=== PATIENT | female | born 1945 | race African-American/Black ===

== ENCOUNTER 2016-12-21 09:03 | Emergency (ER) | payer OTHER ==
[2016-12-21] MEDS ORDERED: DUONEB (A & A) INH ONE (09:47)
[2016-12-21] MEDS ORDERED: SOLU-MEDROL IV ONE (09:48)
[2016-12-21 10:00] LABS: MANUAL DIFF NEEDED? NO
[2016-12-21 10:09] LABS: BASO% 0.1 % (0.0-0.8); EOS# 0.12 X1000 (0.0-0.7); EOS% 1.4 % (0.0-10.0); HEMATOCRIT 29.1 % (37.0-47.0); HEMOGLOBIN 8.8 g/dL (12.0-16.0); IMM GRAN# 0.02 X1000 (0.0-0.04); IMM GRAN% 0.2 % (0.0-0.5); LYMPH# 1.69 X1000 (1.2-3.4); LYMPH% 19.9 % (20.5-51.1); MCH 30.2 PG (27-31); MCHC 30.2 g/dL (33-37); MONO# 0.59 X1000 (0.11-0.59); MPV 9.9 FL (7.4-10.4); NEUT% 71.4 % (42.2-75.2); PLT 132 X1000 (130-400); RBC 2.91 XMIL (4.2-5.4)
--- NOTE | 2016-12-21 10:09 | ED EKG INTERP ---
EKG Interpretation - EKG Time of EKG reading by physician:: 09:16 EKG Read and Signed by:: Meagan Najera EKG Interpretation (*Must complete 3 of following elements*): Abnormal Rate: 97 (nonspecific ST and T wave abnormality ) Rhythm: sinus rhythm with premature atrial complexes w/ aberrant conduction - EKG # 2 Time of EKG reading by physician:: 12:17 EKG Read and Signed by:: Meagan Najera EKG Interpretation (*Must complete 3 of following elements*): Abnormal Rate: 84 (cannot rule out anterior infarct, age undeterminded ) Rhythm: NSR Attestation - Scribe Verification/Attestation Scribe:: Keturah Ovalle Acting as Scribe for:: Meagan Najera Scribe documention review:: This chart was documented by a scribe and accurately reflects the service the provider performed and the decisions made by the provider.
--- NOTE | 2016-12-21 10:14 | PROVIDER DOCUMENTATION ---
HPI-Respiratory General - General Chief Complaint: Shortness of Breath Stated Complaint: copd exacerbation Time Seen by Provider: 12/21/16 09:24 Source: patient, EMS Allergies/Adverse Reactions: Patient Allergies Allergy/AdvReac Type Severity Reaction Status Date / Time Penicillins Allergy Intermediate HIVES Verified 12/21/16 09:53 epoetin adela [From Procrit] Allergy Unknown Verified 12/21/16 09:53 Iodinated Contrast Media - AdvReac Intermediate NAUSEA/VOMI Verified 12/21/16 09 :53 Oral and TING ibuprofen [From Motrin] AdvReac Unknown Verified 12/21/16 09:53 Home Medications: Home Medication List Medication Instructions Recorded Confirmed Last Taken Type Amitriptyline [Elavil] 10 mg PO HS 12/21/16 12/21/16 Unknown History Amlodipine Besylate [Norvasc] 10 mg PO DAILY 12/21/16 12/21/16 12/20/16 08:30 History Aspirin [Aspirin EC] 81 mg PO DAILY 12/21/16 12/21/16 12/20/16 08:30 History Clonazepam [Klonopin] 0.5 mg PO DAILY 12/21/16 12/21/16 12/20/16 08:30 History Clonidine HCl 0.1 mg PO BID 12/21/16 12/21/16 12/20/16 19:00 History Dicyclomine [Bentyl] 20 mg PO Q6H PRN PRN 12/21/16 12/21/16 Unknown History Esomeprazole [Nexium] 40 mg PO DAILY 12/21/16 12/21/16 12/20/16 08:30 History Furosemide [Lasix] 40 mg PO DAILY 12/21/16 12/21/16 12/20/16 08:30 History Glimepiride [Amaryl] 1 mg PO BID 12/21/16 12/21/16 12/20/16 19:00 History Hydralazine [Apresoline] 100 mg PO TID 12/21/16 12/21/16 12/20/16 19:00 History Hydrocodone/Acetaminophen [[place] 1 each PO DIRECTED PRN 12/21/16 12/21/16 Unknown History 10-325 Tablet] Iron Fum,Ps/FA/Vit B with C #9 1 each PO DAILY 12/21/16 12/21/16 12/20/16 08:30 History [Integra Plus Capsule] Isosorbide Dinitrate [Isordil] 20 mg PO TID 12/21/16 12/21/16 12/20/16 19:00 History Montelukast [Singulair] 10 mg PO QHS 12/21/16 12/21/16 12/20/16 19:00 History Nadolol [Corgard] 40 mg PO BID 12/21/16 12/21/16 12/20/16 19:00 History Ondansetron HCl [Zofran] 4 mg PO BID 12/21/16 12/21/16 12/20/16 19:00 History Prednisone 5 mg PO DAILY 12/21/16 12/21/16 12/20/16 08:30 History Roflumilast [Daliresp] 500 mcg PO DAILY 12/21/16 12/21/16 12/20/16 08:30 History Sucralfate [Carafate] 1 gm PO 4XDAY 12/21/16 12/21/16 12/20/16 19:00 History - History of Present Illness-Resp Nature of Presenting Problem: Pt is a 71 yof who came to the ED with a cc of SOB. Pt reports she came in contact with a sick nurse at home and after that she became SOB. Pt reports last night it got worse so this morning she decided to call EMS. Pt was on 80% SAT on at home oxygen, so EMS gave her an albuterol treatment. When pt got to the ED her room sat was 92%. Pt reports she was nauseous but had no chest pain. Quality of Pain: reports: none Severity in ED: reports: mild Onset/Duration: reports: last night Timing: reports: still present Exposure: reports: illness exposure Associated Symptoms: reports: shortness of breath, short of breath, wheezing Similar Symptoms Previously?: No Recently seen or treated by another doctor?: No Review of Systems - Adult - REVIEW OF SYSTEMS - ADULT Constitutional: denies: chills, fever Eyes: reports: no symptoms reported Ears, Nose, Mouth & Throat: reports: no symptoms reported Cardiovascular: denies: chest pain, heart murmur, syncope Respiratory: reports: shortness of breath, wheezing. denies: cough, hemoptysis Gastrointestinal: reports: nausea. denies: diarrhea, vomiting Genitourinary: reports: no symptoms reported Musculoskeletal: reports: no symptoms reported Integumentary: reports: no symptoms reported Neurological: reports: no symptoms reported Psychiatric: reports: no symptoms reported Endocrine: reports: no symptoms reported Hematologic/Lymphatic: reports: no symptoms reported Allergic/Immunologic: reports: no symptoms reported All Other Systems: Reviewed and Negative Past History - Adult - PAST MEDICAL HISTORY-ADULT Review of Records: reports: Old Records Reviewed, Nursing Assessment Review Major Childhood Illnesses: reports: denies history Cardiovascular: reports: blood clots (PE), CAD, CHF, HTN, hyperlipidemia Respiratory: reports: asthma, COPD Gastrointestinal: reports: diverticulosis, GERD, IBS Obstetrical/Gynecological: reports: denies history Genitourinary: reports: kidney disease (CKD) Musculoskeletal: reports: arthritis, chronic pain Neurological: reports: denies history Psychiatric: reports: depression Endocrine/Immune: reports: Diabetes, lupus Other Conditions: reports: denies history - PRIOR SURGERIES/PROCEDURES Surgical/Procedure History: reports: EGD, colonoscopy, CABG, cholecystectomy, back/neck (back surgery ) - PRIOR HOSPITALIZATIONS Prior Hospitalizations: reports: none - IMMUNIZATION STATUS Childhood Immunizations: See Nurse Assessment Flu Vaccine: See Nurse Assessment - FAMILY HISTORY Family History: reviewed, not pertinent Physical Exam-General - PHYSICAL EXAM-ADULT Initial Vital Signs Reviewed: Yes - CONSTITUTIONAL General Appearance: alert, no apparent distress - EYES Eyes: pink conjunctivae, fundi clear, no AV nicking - HEAD, EARS, NOSE, MOUTH & THROAT HENMT: normocephalic/atraumatic, moist mucous membranes, other (no teeth) - NECK Neck: non-tender - RESPIRATORY Respiratory: decreased breath sounds (bilateral, more on the right lobe than the left), wheezing - CARDIOVASCULAR Cardiovascular: normal peripheral pulses, regular rate, rhythm - GASTROINTESTINAL (ABDOMEN) Abdominal Exam: normal bowel sounds, non tender, soft - MUSCULOSKELETAL Back Exam: normal inspection Extremity: non-tender, pedal edema (less than 1) - SKIN Integumentary: normal color, warm/dry - NEUROLOGIC Neurologic: grossly normal - PSYCHIATRIC Psych/Mental Status: normal mood/affect, normal thought content, normal thought process, oriented x 3 Progress - PLAN OF CARE/RESULTS Progress/Plan/Lab Results: Vital Signs - 24 hr 12/21/16 12/21/16 09:03 09:06 Temperature 98.2 F 98.2 F Pulse Rate 130 H 101 H Respiratory 18 28 H Rate Blood Pressure 221/122 211/122 O2 Sat by Pulse 96 96 Oximetry Orders Category Date Time Status Cardiac Monitoring DIRECTED Care 12/21/16 09:47 Active Cardiac Monitoring DIRECTED Care 12/21/16 09:48 Inactive Saline Loc NOW Care 12/21/16 09:47 Active Saline Loc NOW Care 12/21/16 09:48 Inactive CHEST-2 VIEWS [RAD] Stat Exams 12/21/16 09:48 Ordered ABG [RESP] Routine Lab 12/21/16 09:47 Ordered BLOOD CULTURE [BLDCUL] Stat Lab 12/21/16 09:47 Received CBC WITH ELECTRONIC DIFF [HEME] Stat Lab 12/21/16 09:43 Completed CK PROFILE [SP CHEM] Stat Lab 12/21/16 09:43 Received COMPREHENSIVE METABOLIC PANEL [CHEM] Stat Lab 12/21/16 09:43 Received D-DIMER [CHEM] Stat Lab 12/21/16 09:43 Received LACTATE, PLASMA [CHEM] Stat Lab 12/21/16 09:43 Received MAGNESIUM [CHEM] Stat Lab 12/21/16 09:43 Received PRO B-NATRIURETIC PEPTIDE Stat Lab 12/21/16 09:43 Received PROTIME WITH INR [COAG] Stat Lab 12/21/16 09:43 Received PTT [COAG] Stat Lab 12/21/16 09:43 Received TROPONIN T Stat Lab 12/21/16 09:43 Received Albuterol 2.5MG/Ipratrop 0.5MG [Duoneb (A & A)] Med 12/21/16 09:47 Discontinued 9 ml INH NOW ONE Methylprednisolone Sod Succ [Solu-Medrol] Med 12/21/16 09:48 Discontinued 125 mg IV NOW ONE Aerosol Treatments Routine Oth 12/21/16 09:48 Active EKG [EKG] Stat Ther 12/21/16 09:12 Ordered Laboratory Tests 12/21/16 09:43 WBC 8.48 RBC 2.91 L Hgb 8.8 L Hct 29.1 L MCV 100.0 H MCH 30.2 MCHC 30.2 L RDW Std Deviation 14.9 H Plt Count 132 MPV 9.9 Immature Gran % (Auto) 0.2 Neut % (Auto) 71.4 Lymph % (Auto) 19.9 L [place] % (Auto) 7.0 Eos % (Auto) 1.4 Baso % (Auto) 0.1 Immature Gran # (Auto) 0.02 Neut # (Auto) 6.05 Lymph # (Auto) 1.69 [place] # (Auto) 0.59 Eos # (Auto) 0.12 Baso # (Auto) 0.01 - REASSESSMENT Reassessment #1 Time Reassessed: 13:11 (Pt reports she feels better and is hungry. Pt was told she needed her blood work rechecked. Pt agrees and is okay with the medical decision.) Status: improving Departure - Departure Time of Disposition Order: 15:16 DIAGNOSIS: COPD (chronic obstructive pulmonary disease) Qualifiers: COPD type: unspecified COPD Qualified Code(s): J44.9 - Chronic obstructive pulmonary disease, unspecified Disposition: HOME 01 Certified Medical Emergency: Emergent Condition: Stable Attestation - Scribe Verification/Attestation Scribe:: Keturah Ovalle Acting as Scribe for:: Meagan Najera Scribe documention review:: This chart was documented by a scribe and accurately reflects the service the provider performed and the decisions made by the provider.
[2016-12-21 10:18] LABS: INR 1.06; PROTIME 10.8 Seconds (9.2-11.7); PTT 21.6 Seconds (22.0-36.0)
[2016-12-21 10:19] LABS: ALLEN TEST YES; BE 2.5 mmoll (-3.0-3.0); BLOOD TYPE ARTERIAL; DRAW SITE R RADIAL; METHB 1.6 % (0.0-1.5); O2(CT) 11.8 mL/dL (15.0-23.0); PCO2(98.6) 46 mmHg (35-45); PO2(98.6) 88 mmHg (60-100); SAMPLE BLOOD; SAO2 98.9 % (95.0-100.0); THB 8.7 g/dL (11.5-17.4); pH(98.6) 7.39 (7.35-7.45)
[2016-12-21 10:20] LABS: MODALITY CANNULA
[2016-12-21 10:26] LABS: ALBUMIN 3.2 g/dL (3.5-5.0); CALCIUM 9.2 mg/dL (8.8-10.2); MAGNESIUM 2.1 mg/dL (1.5-2.7); POTASSIUM 4.5 mmol/L (3.5-5.1); TOTAL BILIRUBIN 0.19 mg/dL (0.20-1.00)
[2016-12-21] MEDS ORDERED: LASIX IV ONE (11:05)
[2016-12-21] MEDS ORDERED: ZOFRAN IV ONE (13:00)
[2016-12-21] MEDS ORDERED: CATAPRES PO ONE (13:08)
[2016-12-21 13:51] LABS: ALLEN TEST YES; BE 4.2 mmoll (-3.0-3.0); BLOOD TYPE ARTERIAL; DRAW SITE R RADIAL; METHB 1.4 % (0.0-1.5); O2(CT) 11.9 mL/dL (15.0-23.0); PCO2(98.6) 45 mmHg (35-45); PO2(98.6) 65 mmHg (60-100); SAMPLE BLOOD; SAO2 96.7 % (95.0-100.0); pH(98.6) 7.42 (7.35-7.45)
[2016-12-21 13:52] LABS: MODALITY CANNULA
--- NOTE | 2016-12-21 15:27 | Diag Imaging Result Document ---
PROCEDURE NAME: CHEST-2 VIEWS - 12/21/2016 CHEST, 2 VIEWS: COMPARISON: 11/30/2016. FINDINGS: There is cardiomegaly which appears to have decreased slightly. There are sternal wires from previous surgery again seen. There is mild lower lung interstitial edema similar to the previous exam. There is mild thickening of fissures which appears to have decreased. There is no large pleural effusion or pneumothorax identified. IMPRESSION: Cardiomegaly with possible mild congestive heart failure.
[2016-12-21 15:36] VITALS: BP 167/99
--- NOTE | 2016-12-23 10:50 | EKG Report ---
Test Performed on : 12/21/2016 09:16:13 AM Test Reason : sob Blood Pressure : / mmHG Vent. Rate : 097 BPM Atrial Rate : 097 BPM P-R Int : 162 ms QRS Dur : 068 ms QT Int : 356 ms P-R-T Axes : 055 018 140 degrees QTc Int : 452 ms Sinus rhythm. with premature atrial complexes. with aberrant conduction. Nonspecific ST and T wave abnormality Abnormal ECG When compared with ECG of 30-NOV-2016 06:39, aberrant conduction. is now present Unconfirmed Result
--- NOTE | 2016-12-23 10:51 | EKG Report ---
Test Performed on : 12/21/2016 12:17:09 PM Test Reason : tachycardia Blood Pressure : / mmHG Vent. Rate : 084 BPM Atrial Rate : 084 BPM P-R Int : 172 ms QRS Dur : 066 ms QT Int : 386 ms P-R-T Axes : 061 014 136 degrees QTc Int : 456 ms Normal sinus rhythm. Cannot rule out Anterior infarct , age undetermined Abnormal ECG When compared with ECG of 21-DEC-2016 09:16, (Unconfirmed) aberrant conduction. is no longer present Unconfirmed Result
== END 2016-12-21 16:17 | disposition home or self-care (01) ==
LOC: ED 09:03
DX: J44.9 Chronic obstructive pulmonary disease, unspecified (principal); R94.31 Abnormal electrocardiogram [ECG] [EKG]; R06.02 Shortness of breath; R11.0 Nausea; R06.2 Wheezing; R60.0 Localized edema; I25.10 Atherosclerotic heart disease of native coronary artery without angina pectoris; I50.9 Heart failure, unspecified; Z79.899 Other long term (current) drug therapy; E78.5 Hyperlipidemia, unspecified; K21.9 Gastro-esophageal reflux disease without esophagitis; K58.9 Irritable bowel syndrome, unspecified; I12.9 Hypertensive chronic kidney disease with stage 1 through stage 4 chronic kidney disease, or unspecified chronic kidney disease; N18.9 Chronic kidney disease, unspecified; M19.90 Unspecified osteoarthritis, unspecified site; G89.29 Other chronic pain; E11.9 Type 2 diabetes mellitus without complications; M32.9 Systemic lupus erythematosus, unspecified; F32.9 Major depressive disorder, single episode, unspecified; Z79.82 Long term (current) use of aspirin
CPT/HCPCS: 71020; 80053; 82550; 82805; 83605; 83735; 83880; 84484; 85025; 85379; 85610; 85730; 87040; 93005; 94640; 94761; 96374; 96375; J1940; J2405; J2930

== ENCOUNTER 2017-02-03 15:12 | Inpatient (IN) ==
[2017-02-03] MEDS ORDERED: LASIX IV ONE (16:29)
--- NOTE | 2017-02-03 17:01 | Diag Imaging Result Document ---
PROCEDURE NAME: CHEST-PORTABLE - 02/03/2017 PORTABLE CHEST X-RAY: COMPARISON: 12/21/2016. FINDINGS: Stable sternotomy wires and cardiomegaly. Stable mild interstitial infiltrates diffusely and bilaterally compatible with pulmonary edema. No pneumothorax or large effusion. IMPRESSIONS: Cardiomegaly and interstitial pulmonary edema. Very similar to prior.
--- NOTE | 2017-02-03 17:53 | PROVIDER DOCUMENTATION ---
This chart was entered by Donna Avina Scribe, acting as scribe for Ildefonso Walters MD. HPI-Respiratory General - General Source: patient - History of Present Illness-Resp Severity in ED: reports: mild Onset/Duration: reports: 2 days ago Timing: reports: still present Current Respiratory Medication Therapy: Initiated see nurses note Associated Symptoms: reports: shortness of breath Similar Symptoms Previously?: No Recently seen or treated by another doctor?: No <Ildefonso Walters - Last Filed: 02/03/17 17:53> - General Source: patient <Giaocmo Huggins - Last Filed: 02/05/17 00:42> - General Stated Complaint: SOB Time Seen by Provider: 02/03/17 15:29 Allergies/Adverse Reactions: Patient Allergies Allergy/AdvReac Type Severity Reaction Status Date / Time Penicillins Allergy Intermediate HIVES Verified 02/03/17 16:20 epoetin adela [From Procrit] Allergy Unknown Verified 02/03/17 16:20 Iodinated Contrast Media - AdvReac Intermediate NAUSEA/VOMI Verified 02/03/17 16 :20 Oral and TING ibuprofen [From Motrin] AdvReac Unknown Verified 02/03/17 16:20 Home Medications: Home Medication List Medication Instructions Recorded Confirmed Last Taken Type Amitriptyline [Elavil] 10 mg PO HS 12/21/16 02/03/17 02/02/17 21:00 History Amlodipine Besylate [Norvasc] 10 mg PO DAILY 12/21/16 02/03/17 02/03/17 07:00 History Aspirin [Aspirin EC] 81 mg PO DAILY 12/21/16 02/03/17 02/03/17 07:00 History Clonazepam [Klonopin] 0.5 mg PO DAILY 12/21/16 02/03/17 02/02/17 21:00 History Clonidine HCl 0.1 mg PO BID 12/21/16 02/03/17 02/03/17 07:00 History Dicyclomine [Bentyl] 20 mg PO Q6H PRN PRN 12/21/16 02/03/17 02/02/17 21:00 History Esomeprazole [Nexium] 40 mg PO DAILY 12/21/16 02/03/17 02/03/17 07:00 History Furosemide [Lasix] 40 mg PO DAILY 12/21/16 02/03/17 02/03/17 07:00 History Glimepiride [Amaryl] 1 mg PO BID 12/21/16 02/03/17 01/05/17 History Hydrocodone/Acetaminophen [[place] 1 each PO DIRECTED PRN 12/21/16 02/03/17 13:00 History 10-325 Tablet] Iron Fum,Ps/FA/Vit B with C #9 1 each PO BID 12/21/16 01/06/17 02/03/17 07:00 History [Integra Plus Capsule] Isosorbide Dinitrate [Isordil] 20 mg PO TID 12/21/16 02/03/17 02/03/17 13:00 History Montelukast [Singulair] 10 mg PO QHS 12/21/16 02/03/17 02/02/17 21:00 History Nadolol [Corgard] 40 mg PO DAILY 12/21/16 01/06/17 02/03/17 07:00 History Ondansetron HCl [Zofran] 4 mg PO BID 12/21/16 02/03/17 02/03/17 07:00 History Prednisone 5 mg PO DAILY 12/21/16 02/03/17 02/03/17 07:00 History Roflumilast [Daliresp] 500 mcg PO DAILY 12/21/16 02/03/17 02/03/17 07:00 History Sucralfate [Carafate] 1 gm PO 4X12/21/16 02/03/17 02/03/17 13:00 History Carvedilol [Coreg] mg PO BID 02/03/17 02/03/17 07:00 History Hydralazine [Apresoline] 100 mg PO TID 02/03/17 02/03/17 02/03/17 13:00 History - History of Present Illness-Resp Nature of Presenting Problem: 72 year old F presents to the ED with a cc of shortness of breath and lower leg swelling with an onset of 2 days ago. Pt has a hx of COPD and CHF. PT states that her home health nurse made her come. (Donna Avina) 72 year old F presents to the ED with a cc of shortness of breath and lower leg swelling with an onset of 2 days ago. Pt has a hx of COPD and CHF. PT states that her home health nurse made her come. (Ildefonso Walters) Review of Systems - Adult - REVIEW OF SYSTEMS - ADULT Constitutional: denies: see HPI, fever Eyes: reports: no symptoms reported Ears, Nose, Mouth & Throat: reports: no symptoms reported Cardiovascular: reports: edema. denies: chest pain, palpitations Respiratory: reports: shortness of breath. denies: cough Gastrointestinal: reports: no symptoms reported Genitourinary: reports: no symptoms reported Musculoskeletal: reports: no symptoms reported Integumentary: reports: no symptoms reported Neurological: reports: no symptoms reported Psychiatric: reports: no symptoms reported Endocrine: reports: no symptoms reported Hematologic/Lymphatic: reports: no symptoms reported Allergic/Immunologic: reports: no symptoms reported All Other Systems: Reviewed and Negative <Ildefonso Walters - Last Filed: 02/03/17 17:53> - REVIEW OF SYSTEMS - ADULT Constitutional: denies: see HPI, fever <Giacomo Huggins - Last Filed: 02/05/17 00:42> Past History - Adult - PAST MEDICAL HISTORY-ADULT Review of Records: reports: Nursing Assessment Review, Medications Reviewed Major Childhood Illnesses: reports: denies history Cardiovascular: reports: blood clots (PE), CAD, CHF, HTN, hyperlipidemia Respiratory: reports: asthma, COPD Gastrointestinal: reports: diverticulosis, GERD, IBS Obstetrical/Gynecological: reports: denies history Genitourinary: reports: kidney disease (CKD) Musculoskeletal: reports: arthritis, chronic pain Neurological: reports: denies history Psychiatric: reports: depression Endocrine/Immune: reports: Diabetes, lupus Other Conditions: reports: denies history - PRIOR SURGERIES/PROCEDURES Surgical/Procedure History: reports: EGD, colonoscopy, CABG, cholecystectomy, back/neck (back surgery ) - PRIOR HOSPITALIZATIONS Prior Hospitalizations: reports: none - IMMUNIZATION STATUS Childhood Immunizations: See Nurse Assessment Flu Vaccine: See Nurse Assessment - FAMILY HISTORY Family History: reviewed, not pertinent - SOCIAL HISTORY Smoking: non-smoker Substance Use: none/never Alcohol Use Frequency: never <Ildefonso Walters - Last Filed: 02/03/17 17:53> - PAST MEDICAL HISTORY-ADULT Review of Records: reports: Old Records Reviewed, Nursing Assessment Review, Medications Reviewed, Social history reviewed & non-contributory. <Giacomo Huggins - Last Filed: 02/05/17 00:42> Physical Exam-General - PHYSICAL EXAM-ADULT Initial Vital Signs Reviewed: Yes - CONSTITUTIONAL General Appearance: appears well, alert, no apparent distress - RESPIRATORY Respiratory: rales (minimal) - CARDIOVASCULAR Cardiovascular: normal peripheral pulses, regular rate, rhythm, no edema - GASTROINTESTINAL (ABDOMEN) Abdominal Exam: non tender, soft - MUSCULOSKELETAL Extremity: pedal edema (4+ bilateral lower extremity edema) - SKIN Integumentary: normal color, normal turgor, warm/dry - PSYCHIATRIC Psych/Mental Status: normal mood/affect, normal thought content, normal thought process, oriented x 3 <Ildefonso Walters - Last Filed: 02/03/17 17:53> - PHYSICAL EXAM-ADULT Initial Vital Signs Reviewed: Yes - CONSTITUTIONAL General Appearance: appears well, alert, no apparent distress <Giacomo Huggins - Last Filed: 02/05/17 00:42> Progress - EKG 1 Time of EKG reading by physician:: 15:41 EKG Read and Signed by:: Ildefonso Walters EKG Interpretation (*Must complete 3 of following elements*): Abnormal Rate: 70 Rhythm: NSR ST Wave: non-specific ST changes <Ildefonso Walters - Last Filed: 02/03/17 17:53> - PLAN OF CARE/RESULTS Result Diagrams: 02/04/17 07:05 02/04/17 07:05 - REASSESSMENT Reassessment #1 Time Reassessed: 20:17 (pt has not prodiced much of any urine since given lasix 40 mg IV earlier this afternoon) Status: unchanged <Giacomo Huggins - Last Filed: 02/05/17 00:42> - PLAN OF CARE/RESULTS Progress/Plan/Lab Results: Orders Category Date Time Status Admit - [facility] - [facility] Routine AdmDCTranf 02/04/17 00:48 Ordered Activity - Up with Assistance ORDERED Care 02/04/17 00:48 Active Cardiac Monitoring DIRECTED Care 02/03/17 16:26 Completed Daily Weights 0500 Care 02/04/17 00:48 Active FSBS/Accucheck Result AC + HS Care 02/04/17 00:48 Active [place] [facility] Insertion ORDERED Care 02/03/17 16:28 Inactive Intake and Output-Strict ORDERED Care 02/04/17 00:48 Active Nursing- MD Consult Request ROUTINE Care 02/04/17 00:48 Active Oxygen Therapy- ED Nursing DIRECTED Care 02/03/17 16:26 Completed Saline Loc DIRECTED Care 02/04/17 00:48 Completed Saline Loc NOW Care 02/03/17 16:26 Completed Physician/Provider Consults Routine Cons 02/04/17 00:48 Ordered Diabetic Diet Diet 02/04/17 21:26 Completed CHEST-2 VIEWS [RAD] Routine Exams 02/04/17 16:00 Completed CHEST-PORTABLE [RAD] Stat Exams 02/03/17 16:27 Draft BASIC METABOLIC PANEL [CHEM] Routine Lab 02/04/17 07:05 Completed CBC WITH DIFF [HEME] Routine Lab 02/04/17 07:05 Completed CBC WITH ELECTRONIC DIFF [HEME] Stat Lab 02/03/17 17:35 Completed CK PROFILE [SP CHEM] Stat Lab 02/03/17 17:35 Completed COMPREHENSIVE METABOLIC PANEL [CHEM] Stat Lab 02/03/17 17:35 Completed MAGNESIUM [CHEM] Stat Lab 02/03/17 17:35 Completed PRO B-NATRIURETIC PEPTIDE Stat Lab 02/03/17 17:35 Completed PROTIME WITH INR [COAG] Stat Lab 02/03/17 17:35 Completed PTT [COAG] Stat Lab 02/03/17 17:35 Completed TROPONIN T Stat Lab 02/03/17 17:35 Completed Albuterol 2.5MG/Ipratrop 0.5MG [Duoneb (A & A)] Med 02/03/17 20:47 Discontinued 3 ml INH NOW ONE Albuterol 2.5MG/Ipratrop 0.5MG [Duoneb (A & A)] Med 02/04/17 04:00 Active 3 ml INH RTQ6H Amitriptyline [Elavil] Med 02/04/17 21:00 Discontinued 10 mg PO HS Amlodipine [Norvasc] Med 02/04/17 09:00 Active 10 mg PO DAILY Aspirin EC Med 02/04/17 09:00 Active 81 mg PO DAILY Carvedilol [Coreg] Med 02/04/17 00:48 Active 6.25 mg PO BID Clonazepam [Klonopin] Med 02/04/17 09:00 Active 0.5 mg PO DAILY Dicyclomine [Bentyl] Med 02/04/17 00:48 Active 20 mg PO Q6H PRN PRN Furosemide [Lasix] Med 02/04/17 09:00 Active 40 mg IV BID Furosemide [Lasix] Med 02/03/17 16:29 Discontinued 40 mg IV NOW ONE Heparin Med 02/04/17 09:00 Active 5,000 unit SUBQ Q12HR Hydralazine [Apresoline] Med 02/04/17 09:00 Discontinued 100 mg PO TID Hydrocodone/APAP 10 mg/325 mg [[place]-10] Med 02/04/17 00:48 Discontinued 1 each PO DIRECTED PRN Hydrocodone/APAP 7.5 mg/325 mg [[place]-7.5] Med 02/03/17 20:47 Discontinued 1 each PO NOW ONE Isosorbide Dinitrate [Isordil] Med 02/04/17 09:00 Discontinued 20 mg PO TID Omeprazole [Prilosec] Med 02/04/17 07:00 Active 20 mg PO DAILY@0700 Ondansetron [Zofran] Med 02/04/17 00:48 Active 4 mg IV Q4H PRN PRN Prednisone Med 02/04/17 09:00 Active 5 mg PO DAILY Aerosol Treatments Routine Oth 02/03/17 20:47 Completed Aerosol Treatments Routine Oth 02/04/17 00:48 Completed Aerosol Treatments Stat Oth 02/03/17 20:47 Completed Aerosol Treatments Stat Oth 02/04/17 00:48 Completed Oxygen Device Routine Oth 02/04/17 00:48 Completed Telemetry [OM.EQ] Routine Oth 02/04/17 00:48 Active EKG [EKG] Stat Ther 02/03/17 16:26 Draft Echo Spec/Color Dop W/O Contra Routine Ther 02/04/17 09:00 Draft Transfer/Admit Order [TRANSFER] Routine Transfer 02/03/17 21:23 Completed Departure <Ildefonso Walters - Last Filed: 02/03/17 17:53> - Departure Time of Disposition Decision: 20:18 Certified Medical Emergency: Emergent - Critical Care Note This patient required my direct personal management.: Yes <Giacomo Huggins - Last Filed: 02/05/17 00:42> - Departure DIAGNOSIS: Renal failure CHF (congestive heart failure) Qualifiers: Congestive heart failure type: unspecified congestive heart failure type Congestive heart failure chronicity: chronic Qualified Code(s): I50.9 - Heart failure, unspecified Disposition: ADMITTED INPATIENT 09 Condition: Fair This chart was documented by the indicated scribe, (Donna Avina Scribe) and accurately reflects the services I performed and decisions made by me, Ildefonso Walters MD, as attested by the provider's signature.
[2017-02-03 17:57] LABS: MANUAL DIFF NEEDED? NO
[2017-02-03 18:08] LABS: BASO% 0.2 % (0.0-0.8); EOS# 0.02 X1000 (0.0-0.7); EOS% 0.4 % (0.0-10.0); HEMATOCRIT 27.9 % (37.0-47.0); HEMOGLOBIN 8.4 g/dL (12.0-16.0); LYMPH# 0.79 X1000 (1.2-3.4); LYMPH% 16.8 % (20.5-51.1); MCH 29.2 PG (27-31); MCHC 30.1 g/dL (33-37); MCV 96.9 FL (81-99); MONO# 0.44 X1000 (0.11-0.59); MONO% 9.3 % (1.7-9.3); MPV 10.2 FL (7.4-10.4); NEUT% 73.3 % (42.2-75.2); PLT 143 X1000 (130-400); RBC 2.88 XMIL (4.2-5.4)
[2017-02-03 18:10] LABS: INR 1.14; PROTIME 12.1 Seconds (9.2-11.7); PTT 27.7 Seconds (22.0-36.0)
[2017-02-03 18:19] LABS: ALBUMIN 3.2 g/dL (3.5-5.0); CALCIUM 8.8 mg/dL (8.8-10.2); MAGNESIUM 1.8 mg/dL (1.5-2.7); POTASSIUM 5.5 mmol/L (3.5-5.1); TOTAL BILIRUBIN 0.16 mg/dL (0.20-1.00); TOTAL PROTEIN 6.7 g/dL (6.3-8.3)
[2017-02-03] MEDS ORDERED: NORCO-7.5 PO ONE (20:47)
[2017-02-03] MEDS ORDERED: DUONEB (A & A) INH ONE (20:47)
--- NOTE | 2017-02-03 23:29 | HISTORY AND PHYSICAL ---
PRIMARY CARE PROVIDER: CORWIN Vidal. REASON FOR ADMISSION: A 2-3 week history of worsening shortness of breath and a corresponding lower extremity swelling. HISTORY OF PRESENT ILLNESS: Ms. Seema Amezcua is a pleasant 71-year-old woman who has a history of COPD, hypertensive heart disease, prior intracranial hemorrhage, chronic kidney disease, diastolic heart failure, prior pulmonary emboli, coronary artery disease, cardiac cirrhosis, complicated with esophageal varices, hyperlipidemia, reflux disease, type 2 diabetes. She was last seen here about 6 months ago for shortness of breath. Today, she comes in complaining of the same complaints for the last 2-3 weeks, with increased shortness of breath, initially with exertion, but now at rest, also to include PND and orthopnea for the last 1 week. She also complains of simultaneous lower extremity swelling which has been getting worse. She denies any change in her urinary output. No cough, no fever, no chills. No chest pain or palpitations. She denies any facial swelling, abdominal distention. REVIEW OF SYSTEMS: The patient complained of a 1-week history of a tender lump swelling on the lateral aspect of her left leg. No fever or chills. No incident of trauma prior to this. No polyuria or polydipsia. No focal neurological complaints. No visual symptoms. No rash or arthralgia elsewhere. No change in her blood pressure medications. No recent medications. Otherwise, 12-system review was done and positive findings are noted in the HPI. ALLERGIES: Penicillin, Epogen, IV dye, ibuprofen, oral iodinated contrast media. HOME MEDICATIONS: Elavil 10 mg at bedtime, Norvasc 10 mg daily, aspirin 81 mg daily, Coreg 3.125 mg b.i.d., Klonopin 0.5 mg daily, clonidine 0.1 mg b.i.d., Bentyl 20 mg q.6 p.r.n., Nexium 40 mg daily, Lasix 40 mg daily, Amaryl 1 mg b.i.d., hydralazine 100 mg t.i.d., hydrocodone 7.5 mg p.r.n., iron tablets b.i.d., Isordil 20 mg t.i.d., Singulair 10 mg at bedtime, nadolol 10 mg daily, Zofran 4 mg b.i.d., prednisone 5 mg daily, Daliresp 500 mcg daily, Carafate 1 g 4 times a day. PAST SURGICAL HISTORY: Unchanged from that of July, which includes coronary artery disease, cholecystectomy, multiple back and neck surgeries. FAMILY HISTORY: Only notable for heart disease in her parents. Otherwise, no other medical problems. SOCIAL HISTORY: She does not smoke, drink, or use drugs. Lives alone. LABORATORY WORK: Chest film showed increased vascular markings. White count 4000, hemoglobin 8, hematocrit 28, platelets 143,000. Potassium 5.5, BUN 50, creatinine is 3.7, which has been progressively increasing over the last 6 months, from 2.9. Glucose 132, alkaline phosphatase 106, troponin 0.012, proBNP 12,000. PT and PTT are normal. EKG is pending. PHYSICAL EXAMINATION: GENERAL: A pleasant elderly woman who is not in acute distress. VITAL SIGNS: Blood pressure 152/78. She is 100% on 3 L nasal cannula. Heart rate is 90, respirations 18, temperature 98.1. HEENT: Head is normocephalic, atraumatic. Eyes: JANKI, EOMI. She is anicteric, but pale. ENT: Oropharynx exam is grossly normal. No signs of cyanosis. NECK: Supple. No visible JVD or pulsatile hepatojugular reflux. No bruit or thyromegaly. CHEST: A few bibasilar crepitations noted. No wheezes. Good air entry in both lung hebert. CARDIOVASCULAR: First and second heart sounds heard, with S4, and a questionable soft 2/6 ejection systolic murmur. Rhythm is regular. ABDOMEN: Slightly protuberant, soft. No focal areas of tenderness. No mass or organomegaly. Bowel sounds are hypoactive at this time. EXTREMITIES: Has 2+ pitting edema up to the knees. Pulses distally in all extremities. Have good volume and are symmetrical. No clubbing or peripheral cyanosis. NEUROLOGICAL: No focal deficits. SKIN: Intact. No breakdown or lesions. No erythema. There is a 2 cm swelling on the lateral aspect of her left leg, just about 4 cm above the lateral malleolus on the left foot. It is attached to the structures above and below. It is very tender, but not warm. No redness noted. MUSCULOSKELETAL: Muscular exam is grossly normal. ASSESSMENT: 1. Acute diastolic heart failure. 2. Abjpe-[id number] kidney disease. 3. Left lower extremity swelling, query significance or etiology. This swelling could represent a ganglion cyst, since it is located attached to a tendon, probably of the peroneal muscle group. 4. 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 5. Hypertensive heart disease. 6. Coronary artery disease. 7. Anemia of chronic kidney disease. 8. Cardiac cirrhosis. PLAN: At this time, we will aggressively diurese the patient and aggressively control blood pressure. The patient has diuresed at least 500 mL of urine, and feels slightly better. Will add on nebulizer treatments for further symptomatic relief. May consider doing an echocardiogram, as the last echo report was done in May 2016. Repeat chest film tomorrow to document objective improvement, and follow chemistry closely, especially potassium levels. Regarding the patient's diabetes, will treat this with exclusively a sliding scale. The patient will benefit from an anemia workup. I will defer to Dr. Gupta, who I have consulted because of patient's progressive renal dysfunction. The patient is not uremic, however. Started patient on Coreg as opposed to nadolol for her blood pressure control. Coreg still has an effect on the splanchnic venous vasculature, similar to nadolol. Discontinue Carafate in the face of worsening renal failure. Question benefit of prednisone in this patient, especially since it can cause further salt and water retention, and may need to be discontinued. Will recommend consulting dietitian. [employer] customer service, patient will benefit from increased doses of Lasix since her renal function is declining, and may benefit from a sleep study. cc: MD Krystle Price CRNP
[2017-02-04] MEDS ORDERED: NORCO-10 PO PRN (00:48)
[2017-02-04] MEDS ORDERED: BENTYL PO PRN (00:48)
[2017-02-04] MEDS: COREG PO SCH ×3 (01:26→21:45)
[2017-02-04] MEDS: NORCO-10 PO PRN ×3 (02:07→21:46)
[2017-02-04] MEDS: ELAVIL PO SCH ×2 (02:47→21:45)
[2017-02-04] MEDS: DUONEB (A & A) INH SCH ×4 (04:00→22:15)
--- NOTE | 2017-02-04 05:10 | EKG Report ---
Test Performed on : 02/03/2017 3:28:38 PM Test Reason : SOB Blood Pressure : / mmHG Vent. Rate : 070 BPM Atrial Rate : 070 BPM P-R Int : 182 ms QRS Dur : 076 ms QT Int : 426 ms P-R-T Axes : 051 003 095 degrees QTc Int : 460 ms Normal sinus rhythm. Nonspecific ST and T wave abnormality Abnormal ECG When compared with ECG of 21-DEC-2016 12:17, No significant change was found Unconfirmed Result
[2017-02-04 07:22] LABS: MANUAL DIFF NEEDED? NO
[2017-02-04 07:34] LABS: BASO% 0.2 % (0.0-0.8); EOS# 0.13 X1000 (0.0-0.7); EOS% 2.5 % (0.0-10.0); HEMATOCRIT 28.5 % (37.0-47.0); HEMOGLOBIN 8.7 g/dL (12.0-16.0); LYMPH# 1.54 X1000 (1.2-3.4); LYMPH% 29.2 % (20.5-51.1); MCH 29.7 PG (27-31); MCHC 30.5 g/dL (33-37); MCV 97.3 FL (81-99); MONO# 0.53 X1000 (0.11-0.59); MONO% 10.1 % (1.7-9.3); PLT 137 X1000 (130-400); RBC 2.93 XMIL (4.2-5.4)
[2017-02-04] MEDS: PRILOSEC PO SCH (07:45)
[2017-02-04 07:51] LABS: CALCIUM 8.9 mg/dL (8.8-10.2); POTASSIUM 4.3 mmol/L (3.5-5.1)
[2017-02-04] MEDS: ASPIRIN EC PO SCH (09:45)
[2017-02-04] MEDS: NORVASC PO SCH (09:45)
[2017-02-04] MEDS: APRESOLINE PO SCH ×3 (09:45→21:44)
[2017-02-04] MEDS: PREDNISONE PO SCH (09:45)
[2017-02-04] MEDS: KLONOPIN PO SCH (09:45)
[2017-02-04] MEDS: ISORDIL PO SCH ×3 (09:45→21:46)
[2017-02-04] MEDS: HEPARIN SUBQ SCH ×2 (09:47→21:47)
[2017-02-04] MEDS: LASIX IV SCH ×2 (09:48→21:47)
[2017-02-04] MEDS: ZOFRAN IV PRN ×2 (14:24→21:47)
--- NOTE | 2017-02-04 17:42 | Diag Imaging Result Document ---
PROCEDURE NAME: CHEST-2 VIEWS - 02/04/2017 2 VIEWS OF THE CHEST: FINDINGS: There is cardiomegaly. There is fluid in the fissures. There may be mild interstitial pulmonary edema, particularly over the right lower lobe. This was apparently also the case on the previous study of 02/03/2017. IMPRESSION: Mild pulmonary edema and cardiomegaly.
--- NOTE | 2017-02-04 19:11 | CONSULTATION ---
DATE OF CONSULTATION: 02/04/2017 TIME SEEN: 08:45 a.m. CONSULTING PHYSICIAN: Armando Ramos MD. REASON FOR ADMISSION: Congestive heart failure, lower extremity edema, elevated hypertension. HISTORY OF PRESENT ILLNESS: This is a 72-year-old female, well known to our service for chronic kidney disease stage 4 with a baseline creatinine around 3.2. She has severe pulmonary hypertension, along with diastolic heart failure. She has required transient dialysis in the past. The patient came into the hospital with complaints of increased shortness of breath, both at rest and exertion nurse with extreme lower extremity edema. She states that she still makes good urine with her diuretics, and that she follows a low-sodium and restricted fluid intake diet. She has had no chest pain or palpitations. No cough, fevers or chills. Over the last 24 hours, she has made some urine and states that her eczema is a little bit better. Her breathing is somewhat better. She is hoping to go home soon. 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 Coronary artery disease. Congestive heart failure, hyperlipidemia, diabetes, esophageal varices, chronic kidney disease stage 4, intracranial hemorrhage. Type 2 diabetes. COPD , CHF. ALLERGIES: Penicillin, Epogen, IV dye, ibuprofen, oral iodine contrast dye. HOME MEDICATIONS: Elavil, Norvasc, aspirin, Coreg, Klonopin, clonidine, Bentyl , Nexium, Lasix, Amaryl, hydralazine, hydrocodone, iron, Isordil, Singulair, nadolol, Zofran, prednisone, Daliresp, Carafate. PAST SURGICAL HISTORY: Cholecystectomy, back/neck surgery. Angiography as dialysis catheter placement. FAMILY HISTORY: Noncontributory. SOCIAL HISTORY: No current ETOH, tobacco or illicit drug use. She is a former smoker. REVIEW OF SYSTEMS: As noted above. PHYSICAL EXAMINATION: Vital Signs: Temperature 98.1, pulse 76, respiratory rate 21, blood pressure 161/86. Intake 270 mL. Output 600 mL. General: Elderly, female, sitting up on the side of the bed. Awake and alert, eating breakfast, in no acute distress. HEENT: Normocephalic, atraumatic. Oral mucosa moist. Neck: Supple. Trachea midline. Cardiovascular: Reveals a regular rate and rhythm. She has a gallop and soft systolic murmur. Pulmonary: Equal excursion. She has scattered rhonchi, but no overt wheeze or rales. Abdomen: Soft, with positive bowel sounds. : Not inspected. She is voiding. Extremities: With 2+ pretibial edema. This extends up to the thighs. She does have worsening dependent edema around the ankles. She has a 2-3 cm, cystic-appearing area to the left lower extremity. It is tender, but there is no erythema or warmth noted to the area. It is tender to palpation. Integumentary: Skin is warm and dry otherwise, without rash or lesion. Neuro: Grossly nonfocal. LAB DATA: WBC of 5.2, hemoglobin 8.7 hematocrit 28.5, platelet count of 137. Sodium 143, potassium 4.3, chloride 103, CO2 of 24, BUN 49, creatinine 3.5. Imaging: Chest x-ray, cardiomegaly and interstitial pulmonary edema. ASSESSMENT AND PLAN: 1. Chronic kidney disease stage 4. She has some mild elevation to her creatinine, likely secondary to her cardiac decompensation. She has severe pulmonary hypertension with exacerbation of chronic renal insufficiency. We agree with focusing on her blood pressure. 2. Fluid volume. Would continue diuretics. 3. Anemia. Complete work up. 4. Electrolytes, acid-base balance, acceptable. 5. Blood pressure, see above. Seen, data reviewed, discussed with Camden Murcia on 02/04/17. I agree with the above assessment and plan of care. rg Dictated by CORWIN Perez for Ti Gupta MD cc: Ti Gupta MD [facility]
[2017-02-04] MEDS ORDERED: ELAVIL PO SCH (21:00)
--- NOTE | 2017-02-04 21:47 | ECHO REPORT ---
ORDER DATE: 02/04/2017 MEASUREMENTS: Left ventricular end-diastolic diameter 5.2, end-systolic diameter 3.8, posterior wall thickness 1.3, septal thickness 1.4, left atrium 5.2, aortic root 3.1. SUMMARY: 1. Adequate study. 2. Mild sclerosis of trileaflet aortic valve demonstrated with adequate aortic valve opening, demonstrated a peak gradient of 10 mmHg. Mild thickening of anterior mitral leaflet and posterior mitral leaflet demonstrated. There is moderate to severe (2+ to 3+) mitral regurgitation. Tricuspid and pulmonic valves are without structural abnormality with moderate tricuspid regurgitation and mild pulmonic regurgitation. Estimated systolic PA pressure by Doppler is approximately 60 mmHg. Aortic root is normal in size. 3. Normal left ventricular chamber size with mild concentric left hypertrophy is demonstrated. Estimated left ejection fraction is approximately 55%. No regional wall motion abnormalities are evident. Doppler suggests normal left ventricular diastolic function. Left atrium is moderately enlarged. The right atrium and right ventricle are mildly enlarged with preserved right ventricular systolic function. 4. No pericardial effusion. 5. Appearance of inferior vena cava suggests elevated central venous pressure. CONCLUSIONS: 1. Mild aortic sclerosis without stenosis. 2. Moderate to severe mitral regurgitation. 3. Moderate tricuspid regurgitation with moderate to severe pulmonary hypertension by Doppler. 4. Mild concentric left hypertrophy with estimated left ejection fraction 55%. 5. Moderate left atrial enlargement. 6. Mild right-sided chamber enlargement. 7. Elevated central venous pressure suggested. cc: MD Armando Delaney MD
[2017-02-05] MEDS: NORCO-10 PO PRN ×2 (03:44→09:09)
[2017-02-05] MEDS: DUONEB (A & A) INH SCH ×2 (03:48→09:34)
[2017-02-05] MEDS: PRILOSEC PO SCH (06:03)
[2017-02-05] MEDS ORDERED: AYR NASAL SPRAY NAS PRN (06:06)
[2017-02-05 07:55] VITALS: BP 163/90
[2017-02-05 08:28] LABS: HEMATOCRIT 28.3 % (37.0-47.0); HEMOGLOBIN 8.6 g/dL (12.0-16.0); MCH 29.6 PG (27-31); MCHC 30.4 g/dL (33-37); MCV 97.3 FL (81-99); MPV 9.5 FL (7.4-10.4); RBC 2.91 XMIL (4.2-5.4)
[2017-02-05] MEDS: COREG PO SCH (09:08)
[2017-02-05] MEDS: ISORDIL PO SCH (09:09)
[2017-02-05] MEDS: PREDNISONE PO SCH (09:09)
[2017-02-05] MEDS: NORVASC PO SCH (09:09)
[2017-02-05] MEDS: APRESOLINE PO SCH (09:09)
[2017-02-05] MEDS: ASPIRIN EC PO SCH (09:09)
[2017-02-05] MEDS: KLONOPIN PO SCH (09:09)
[2017-02-05] MEDS: LASIX IV SCH (09:10)
[2017-02-05] MEDS: HEPARIN SUBQ SCH (09:10)
[2017-02-05 09:53] LABS: ALBUMIN 3.4 g/dL (3.5-5.0); CALCIUM 8.7 mg/dL (8.8-10.2); POTASSIUM 4.5 mmol/L (3.5-5.1)
--- NOTE | 2017-02-05 11:09 | PROGRESS NOTE ---
DATE: 02/05/2017 SUBJECTIVE: Patient is sitting up in bed. She is hoping to go home today. OBJECTIVE: Vital Signs: Temperature 99.2 degrees, pulse 81, respiratory rate 20, blood pressure 156/77. Intake 700 mL. Output has not been measured. General: This is an elderly female, sitting up in bed. She is awake and alert, in no acute distress. HEENT: Normocephalic, atraumatic. Oral mucosa is moist. Neck: Supple. She has trace JVD. Cardiovascular: She has a she has a regular rate and rhythm. She has an S4 and a systolic murmur. Pulmonary: She has equal excursion. She is clear bilaterally today, with no increased work of breathing. Abdomen: Soft, with positive bowel sounds. Genitourinary: Not inspected. She is voiding. Extremities: She has trace pretibial edema. No clubbing or cyanosis. This is much improved from yesterday. Integumentary: Skin is warm and dry, without rash or lesion. LABORATORY DATA: Sodium 142, potassium 4.5, CO2 of 26, creatinine 3.5. ASSESSMENT AND PLAN: 1. Acute on chronic kidney disease, stage 4. Her renal function has remained stable throughout the hospitalization. She has had excellent response to diuretic therapy. 2. Fluid volume. After another long discussion with the patient, it has come to light that she had increased her sodium intake, mainly without realizing it, through some changes in her diet. We discussed with her the need for her to maintain a low-sodium diet and this includes to balance her sodium intake whenever she eats food from an outside source. She had been eating some high-sodium foods such as ham, green beans that had been prepared with salt and meat products, processed foods such as macaroni and cheese, etc. The patient is to continue on her fluid restriction. We will ask that she have laboratories in a week and follow up in our office in 2 weeks. Seen, data reviewed, discussed with Camden Murcia on 02/05/17. I agree with the above assessment and plan of care. rg Dictated by CORWIN Perez for Ti Gupta MD cc: Ti Gupta MD [facility]
--- NOTE | 2017-02-06 02:42 | DISCHARGE SUMMARY ---
ADMISSION DATE: 02/03/2017 DISCHARGE DATE: 02/05/2017 HISTORY AND HOSPITAL COURSE: She presented with a 2-3 week history of worsening shortness of breath and corresponding lower extremity swelling. She was followed by Krystle OLIVIA. Ms. Seema Amezcua is a 71-year-old female with a history of COPD, hypertensive heart disease, prior intracranial hemorrhage, chronic kidney disease, diastolic heart failure, prior pulmonary emboli, coronary artery disease, cardiac cirrhosis, complicated with esophageal varices, hyperlipidemia, reflux disease, type 2 diabetes. Was seen here 6 months ago for shortness of breath. Comes in with complaining of some complaints the last 2-3 weeks of increased shortness of breath, initially with exertion, and now at rest. Also, includes paroxysmal nocturnal dyspnea and orthopnea for the last week. Complains of simultaneous lower extremity swelling, which has been getting worse. Denies any change in urinary output. No cough. No fever. No chills. No chest pain or palpitations. No facial swelling or abdominal distention. She is allergic to penicillin, Epogen, IV dye, ibuprofen, oral iodinated contrast media. She was examined in the hospital and found to have pulmonary venous hypertension and pedal edema, secondary to congestive heart failure, systolic dysfunction. She was on Lasix 40 twice a day. They diuresed her more with IV diuretics. She did have some bronchospasm when she presented, so they put her on some bronchodilators, nebulized treatments. We had an echocardiogram done, and Dr. Tolbert read that mild aortic sclerosis, without stenosis, [id number] mitral regurgitation, which was [id number], moderate tricuspid regurgitation, severe pulmonary hypertension. Mild concentric left hypertrophy, left ventricular hypertrophy. Estimated ejection fraction 55%. Moderate left atrial enlargement. Mild right sided chamber enlargement. Elevated central venous pressures suggested, but appeared to have concentric hypertrophy, so more consistent with diastolic dysfunction. She responded to the diuresis. Breathing was better. Swelling went down in her legs, and felt she could go home on 02/05/2017. She already has home O2, and she has CPAP. Will have her on Elavil 10 mg at bedtime, Norvasc 10 mg a day, aspirin 81 mg a day, Coreg 6.25 mg b.i.d., Klonopin she takes 0.5 mg daily, Bentyl she takes 20 mg q.6 hours p.r.n. irritable bowel, and the Lasix I will have her on 80 mg q.a.m. and have her weigh every day. If she jumps up 2 pounds, have her take an additional 80 in the afternoon. Apresoline 100 mg t.i.d., Isordil 20 mg p.o. t.i.d., Prilosec 20 mg a day, prednisone 5 mg a day, and she will have her air nasal spray. She is to follow up with Dr. Gupta. She is to follow up with Krystle OLIVIA in the next couple weeks, and she already has her home O2 and CPAP. cc: Davie Moya MD
== END 2017-02-05 11:15 | disposition home health service (06) ==
LOC: ED 15:12 → SUATTDRO 23:39 → EDIPHOLD 23:39 → 3S 02-04 11:15
PROVIDERS: ATTEND Emergency Medicine

== ENCOUNTER 2017-03-31 21:15 | Inpatient (IN) ==
[2017-03-31] MEDS ORDERED: NS 500 ML IV ONE (22:08)
[2017-03-31] MEDS ORDERED: PHENERGAN IV ONE (22:08)
[2017-03-31] MEDS ORDERED: SODIUM CHLORIDE 0.9% INJ ONE (22:08)
[2017-03-31 22:09] LABS: MANUAL DIFF NEEDED? NO
[2017-03-31 22:14] LABS: BASO% 0.2 % (0.0-0.8); EOS# 0.02 X1000 (0.0-0.7); EOS% 0.5 % (0.0-10.0); HEMATOCRIT 32.6 % (37.0-47.0); HEMOGLOBIN 10.7 g/dL (12.0-16.0); LYMPH# 1.09 X1000 (1.2-3.4); LYMPH% 24.9 % (20.5-51.1); MCH 30.1 PG (27-31); MCHC 32.8 g/dL (33-37); MCV 91.6 FL (81-99); MONO# 0.41 X1000 (0.11-0.59); MONO% 9.4 % (1.7-9.3); MPV 9.8 FL (7.4-10.4); PLT 145 X1000 (130-400); RBC 3.56 XMIL (4.2-5.4)
[2017-03-31 22:56] LABS: ALBUMIN 3.6 g/dL (3.5-5.0); CALCIUM 9.8 mg/dL (8.8-10.2); TOTAL BILIRUBIN 0.19 mg/dL (0.20-1.00); TOTAL PROTEIN 7.7 g/dL (6.3-8.3)
[2017-03-31] MEDS ORDERED: KAYEXALATE PO ONE (23:36)
[2017-03-31] MEDS ORDERED: ALBUTEROL NEB INH ONE (23:37)
--- NOTE | 2017-03-31 23:43 | PROVIDER DOCUMENTATION ---
This chart was entered by Brenda Carmona Scribe, acting as scribe for Giacomo Huggins MD. HPI-Abdominal Pain/GI Problem - General Chief Complaint: Abdominal Pain Stated Complaint: "SICK STOMACH" Time Seen by Provider: 03/31/17 21:57 Source: patient Allergies/Adverse Reactions: Patient Allergies Allergy/AdvReac Type Severity Reaction Status Date / Time Penicillins Allergy Intermediate HIVES Verified 03/31/17 22:10 epoetin adela [From Procrit] Allergy Unknown Verified 03/31/17 22:10 Iodinated Contrast Media - AdvReac Intermediate NAUSEA/VOMI Verified 03/31/17 22 :10 Oral and TING ibuprofen [From Motrin] AdvReac Unknown Verified 03/31/17 22:10 Home Medications: Home Medication List Medication Instructions Recorded Confirmed Last Taken Type Amitriptyline [Elavil] 10 mg PO HS 12/21/16 03/31/17 03/30/17 History Amlodipine Besylate [Norvasc] 10 mg PO DAILY 12/21/16 03/31/17 03/31/17 History Aspirin [Aspirin EC] 81 mg PO DAILY 12/21/16 03/31/17 03/31/17 History Clonazepam [Klonopin] 0.5 mg PO DAILY 12/21/16 03/31/17 03/31/17 History Dicyclomine [Bentyl] 20 mg PO Q6H PRN PRN 12/21/16 03/31/17 03/31/17 History Esomeprazole [Nexium] 40 mg PO DAILY 12/21/16 03/31/17 03/31/17 History Glimepiride [Amaryl] 1 mg PO BID 12/21/16 03/31/17 03/31/17 History Isosorbide Dinitrate [Isordil] 20 mg PO TID 12/21/16 03/31/17 03/31/17 History Montelukast [Singulair] 10 mg PO QHS 12/21/16 03/31/17 03/30/17 History Nadolol [Corgard] 40 mg PO DAILY 12/21/16 03/31/17 03/31/17 History Ondansetron HCl [Zofran] 4 mg PO BID 12/21/16 03/31/17 03/31/17 History Prednisone 5 mg PO DAILY 12/21/16 03/31/17 03/31/17 History Roflumilast [Daliresp] 500 mcg PO DAILY 12/21/16 03/31/17 03/31/17 History Sucralfate [Carafate] 1 gm PO 4XDAY 12/21/16 03/31/17 03/31/17 History Hydralazine [Apresoline] 100 mg PO TID 02/03/17 03/31/17 03/31/17 History Carvedilol [Coreg] 6.25 mg PO BID #60 tablet 02/05/17 03/31/17 03/31/17 Rx Furosemide [Lasix] 80 mg PO DAILY #45 02/05/17 03/31/17 03/31/17 Rx Hydrocodone/Acetaminophen [[place] 1 each PO PRN PRN 03/31/17 03/31/17 03/31/17 History 7.5-325 Tablet] - History of Present Illness-ABD Nature of Presenting Problems: 72 Y/O F presents to ED with ABD pain. Pt states that she's had ABD pain, N for 5 days. Not able to eat, able to keep fluids down. States pain with urination, states 2 BM per a day. Abdominal Pain Onset Location: reports: generalized abdomen Pain Radiation: reports: no radiation Quality of Pain: reports: aching Severity in ED: reports: mild, moderate Onset/Duration: reports: 5 days ago Timing: reports: still present Associated Symptoms: reports: genitourinary problems, loss of appetite, nausea. denies: fever/chills, headaches Last BM: this afternoon Review of Systems - Adult - REVIEW OF SYSTEMS - ADULT Constitutional: denies: chills, fever Eyes: reports: no symptoms reported Ears, Nose, Mouth & Throat: reports: no symptoms reported Cardiovascular: reports: no symptoms reported Respiratory: reports: no symptoms reported Gastrointestinal: reports: abdominal pain, diarrhea, nausea. denies: vomiting Genitourinary: reports: no symptoms reported Musculoskeletal: reports: no symptoms reported Integumentary: reports: no symptoms reported Neurological: reports: no symptoms reported Psychiatric: reports: no symptoms reported Endocrine: reports: no symptoms reported Hematologic/Lymphatic: reports: no symptoms reported Allergic/Immunologic: reports: no symptoms reported All Other Systems: Reviewed and Negative Past History - Adult - PAST MEDICAL HISTORY-ADULT Review of Records: reports: Old Records Reviewed, Nursing Assessment Review, Medications Reviewed, Social history reviewed & non-contributory. Major Childhood Illnesses: reports: denies history Cardiovascular: reports: blood clots (PE), CAD, CHF, HTN, hyperlipidemia Respiratory: reports: asthma, COPD Gastrointestinal: reports: diverticulosis, GERD, IBS Obstetrical/Gynecological: reports: denies history Genitourinary: reports: kidney disease (CKD) Musculoskeletal: reports: arthritis, chronic pain Neurological: reports: denies history Psychiatric: reports: depression Endocrine/Immune: reports: Diabetes, lupus Other Conditions: reports: denies history - PRIOR SURGERIES/PROCEDURES Surgical/Procedure History: reports: EGD, colonoscopy, CABG, cholecystectomy, back/neck (back surgery ) - PRIOR HOSPITALIZATIONS Prior Hospitalizations: reports: none - IMMUNIZATION STATUS Childhood Immunizations: See Nurse Assessment Flu Vaccine: See Nurse Assessment - FAMILY HISTORY Family History: reviewed, not pertinent Physical Exam-General - CONSTITUTIONAL General Appearance: alert, no apparent distress - EYES Eyes: PERRL/EOMI, pink conjunctivae - HEAD, EARS, NOSE, MOUTH & THROAT HENMT: normocephalic/atraumatic, moist mucous membranes, normal ENT inspection, TMs normal, pharynx normal - NECK Neck: full range of motion, supple, normal inspection - RESPIRATORY Respiratory: chest non-tender, lungs clear, normal breath sounds - CARDIOVASCULAR Cardiovascular: normal peripheral pulses, regular rate, rhythm - GASTROINTESTINAL (ABDOMEN) Abdominal Exam: non tender, soft - LYMPHATIC Lymphatic: no adenopathy - MUSCULOSKELETAL Back Exam: normal inspection Extremity: normal range of motion - SKIN Integumentary: normal color, normal turgor - NEUROLOGIC Neurologic: floatman II-XII nml as tested - PSYCHIATRIC Psych/Mental Status: normal mood/affect, normal thought content, normal thought process, oriented x 3 Progress - PLAN OF CARE/RESULTS Progress/Plan/Lab Results: Vital Signs - 8 hr 03/31/17 21:48 Temperature 98.8 F Pulse Rate 72 Respiratory Rate 22 Blood Pressure 133/71 O2 Sat by Pulse Oximetry 99 Laboratory Results - last 24 hr 03/31/17 22:00 WBC 4.38 L RBC 3.56 L Hgb 10.7 L Hct 32.6 L MCV 91.6 MCH 30.1 MCHC 32.8 L RDW Std Deviation 16.2 H Plt Count 145 MPV 9.8 Immature Gran % (Auto) 0.0 Neut % (Auto) 65.0 Lymph % (Auto) 24.9 [place] % (Auto) 9.4 H Eos % (Auto) 0.5 Baso % (Auto) 0.2 Immature Gran # (Auto) 0.00 Neut # (Auto) 2.85 Lymph # (Auto) 1.09 L [place] # (Auto) 0.41 Eos # (Auto) 0.02 Baso # (Auto) 0.01 Orders Category Date Time Status NPO Diet 03/31/17 21:37 Active AMYLASE [CHEM] Stat Lab 03/31/17 22:00 Received CBC WITH ELECTRONIC DIFF [HEME] Stat Lab 03/31/17 22:00 Completed COMPREHENSIVE METABOLIC PANEL [CHEM] Stat Lab 03/31/17 22:00 Received LIPASE [CHEM] Stat Lab 03/31/17 22:00 Received URINALYSIS W/POSS RFLX CULT-1 [URINALYSIS] Stat Lab 03/31/17 21:37 Uncollected 0.9% Sodium Chloride Inj [Ns] 500 ml Med 03/31/17 22:08 Active IV 999 mls/hr Promethazine [Phenergan] Med 03/31/17 22:08 Discontinued 12.5 mg IV NOW ONE Sodium Chloride 0.9% Med 03/31/17 22:08 Discontinued 10 ml INJ NOW ONE Result Diagrams: 03/31/17 22:00 03/31/17 22:00 - CONSULTS/PCP/HOSPITALIST Notification #1 *Consult/PCP/Hospitalist*: Time Discussed: 23:40 Reason/Comments: Admit Consult Disposition: Admit (Admit Accepted) Departure - Departure Date of Disposition Decision: 03/31/17 Time of Disposition Decision: 23:42 DIAGNOSIS: Hyperkalemia Chronic kidney disease Qualifiers: Chronic kidney disease stage: unspecified stage Qualified Code(s): N18.9 - Chronic kidney disease, unspecified Disposition: ADMITTED INPATIENT 09 Certified Medical Emergency: Emergent Condition: Fair Referrals and Follow-Ups: Krystle Fisher CRNP [Primary Care Provider] - - Critical Care Note This patient required my direct & personal management of CC.: No This chart was documented by the indicated scribe, (Brenda Carmona Scribe) and accurately reflects the services I performed and decisions made by me, O'Meara, Giacomo F., MD, as attested by the provider's signature.
[2017-03-31 23:49] LABS: URINE MICRO REVIEW NEEDED? NO; URINE SOURCE CLEAN CATCH
[2017-03-31 23:53] LABS: UR EPITHELIAL CELLS <10 /HPF (<10); URINE BACTERIA NEGATIVE /HPF; URINE RBC <10 /HPF (<10); URINE WBC <10 /HPF (<10)
[2017-04-01 00:01] LABS: COLOR YELLOW; TURBIDITY URINE CLEAR (CLEAR)
[2017-04-01 00:02] LABS: BILIRUBIN URINE NEGATIVE (NEGATIVE); BLOOD URINE NEGATIVE (NEGATIVE); GLUCOSE URINE NEGATIVE (NEGATIVE); LEUKOCYTES URINE TRACE (NEGATIVE); NITRITE URINE NEGATIVE (NEGATIVE); PROTEIN URINE 200 mg/dL (NEGATIVE); SP GRAVITY URINE 1.011; URINE CULTURE NEEDED? YES; UROBILINOGEN URINE NORMAL (NORMAL)
--- NOTE | 2017-04-01 00:56 | ED EKG INTERP ---
This chart was entered by Brenda Carmona Scribe, acting as scribe for Giacomo Huggins MD. EKG Interpretation - EKG Time of EKG reading by physician:: 00:06 EKG Read and Signed by:: Giacomo Huggins EKG Interpretation (*Must complete 3 of following elements*): Abnormal Rate: 78 Rhythm: Sinus Rhythm wih 1st degree AV Block Comments: Abnormal ECG, Abnormal QRS-T Angle, consider Primary Twave abnormality This chart was documented by the indicated scribe, (Brenda Carmona Scribe) and accurately reflects the services I performed and decisions made by me, Giacomo Huggins MD, as attested by the provider's signature.
[2017-04-01] MEDS ORDERED: HUMULIN R IV ONE (01:22)
[2017-04-01] MEDS ORDERED: D50W SYRINGE IV ONE (01:22)
[2017-04-01] MEDS ORDERED: CALCIUM GLUCONATE 1 GM in NS 50 ML IV ONE ×2 (01:22→01:59)
[2017-04-01] MEDS ORDERED: LASIX IV ONE (01:22)
[2017-04-01] MEDS ORDERED: ZOFRAN IV PRN (02:19)
[2017-04-01] MEDS ORDERED: TYLENOL PO PRN (02:19)
[2017-04-01] MEDS ORDERED: SODIUM CHLORIDE 0.9% INJ SCH (02:45)
[2017-04-01 02:56] LABS: INR 1.13
[2017-04-01] MEDS: PROTONIX IV SCH (03:20)
[2017-04-01] MEDS ORDERED: DUONEB (A & A) INH PRN (05:08)
[2017-04-01 05:21] LABS: MANUAL DIFF NEEDED? NO
[2017-04-01 05:23] LABS: BASO% 0.2 % (0.0-0.8); EOS# 0.08 X1000 (0.0-0.7); EOS% 1.8 % (0.0-10.0); HEMATOCRIT 30.2 % (37.0-47.0); HEMOGLOBIN 9.8 g/dL (12.0-16.0); LYMPH# 1.58 X1000 (1.2-3.4); LYMPH% 36.3 % (20.5-51.1); MCH 30.2 PG (27-31); MCHC 32.5 g/dL (33-37); MCV 92.9 FL (81-99); MONO# 0.58 X1000 (0.11-0.59); MONO% 13.3 % (1.7-9.3); MPV 10.3 FL (7.4-10.4); NEUT% 48.4 % (42.2-75.2); PLT 131 X1000 (130-400); RBC 3.25 XMIL (4.2-5.4)
[2017-04-01] MEDS ORDERED: NS 1,000 ML IV SCH (05:53)
--- NOTE | 2017-04-01 06:24 | EKG Report ---
Test Performed on : 04/01/2017 05:45:15 AM Test Reason : Hyperkalemia Blood Pressure : / mmHG Vent. Rate : 085 BPM Atrial Rate : 085 BPM P-R Int : 202 ms QRS Dur : 080 ms QT Int : 372 ms P-R-T Axes : 054 024 098 degrees QTc Int : 442 ms Normal sinus rhythm. Abnormal QRS-T angle, consider primary T wave abnormality Abnormal ECG When compared with ECG of 01-APR-2017 00:06, (Unconfirmed) No significant change was found Confirmed by Villa GALE, Rigoberto Webb ([id number]) on 04/02/2017 2:55:43 PM
--- NOTE | 2017-04-01 06:25 | EKG Report ---
Test Performed on : 04/01/2017 00:06:16 AM Test Reason : hyperkalemia Blood Pressure : / mmHG Vent. Rate : 078 BPM Atrial Rate : 078 BPM P-R Int : 212 ms QRS Dur : 074 ms QT Int : 366 ms P-R-T Axes : 073 -08 093 degrees QTc Int : 417 ms Sinus rhythm. with 1st degree AV block. Abnormal QRS-T angle, consider primary T wave abnormality Abnormal ECG When compared with ECG of 03-FEB-2017 15:28, OR interval has increased Unconfirmed Result
[2017-04-01] MEDS: HUMALOG SUBQ SCH ×3 (06:29→17:24)
[2017-04-01 06:42] LABS: ALBUMIN 3.3 g/dL (3.5-5.0); CALCIUM 9.1 mg/dL (8.8-10.2)
[2017-04-01 07:10] LABS: POTASSIUM 6.5 mmol/L (3.5-5.1)
--- NOTE | 2017-04-01 07:44 | Diag Imaging Result Doc PS360 ---
EXAM: FLAT/UPRIGHT ABD/1 VIEW CHEST INDICATION: Abd. Pain, N/V TECHNIQUE: 3 views COMPARISON: Chest radiograph dated 02/04/2017 FINDINGS: There are unremarkable bowel gas and stool patterns. There is no obstructive bowel pattern. There is no evidence of large volume free abdominal gas. There are atherosclerotic calcifications. There are coarse bulky calcifications projecting of the pelvis that probably represent calcified uterine fibroids. The lungs are grossly clear. There is no discrete pleural fluid collection or pneumothorax. There is cardiomegaly and prior CABG changes. Cardiac mediastinal silhouette and central vasculature are essentially unremarkable, otherwise. IMPRESSION: 1.Cardiomegaly. 2.No definite acute pathology by plain radiograph. Electronically signed by Modesto Montes 04/01/2017 7:42 AM
[2017-04-01] MEDS: CARAFATE PO SCH ×4 (08:39→21:52)
[2017-04-01] MEDS: DALIRESP PO SCH (08:39)
[2017-04-01] MEDS: PREDNISONE PO SCH (08:39)
[2017-04-01] MEDS: KLONOPIN PO SCH (08:39)
[2017-04-01] MEDS: LASIX PO SCH (08:39)
[2017-04-01] MEDS: ASPIRIN EC PO SCH (08:39)
[2017-04-01] MEDS: ISORDIL PO SCH ×3 (08:40→17:09)
[2017-04-01] MEDS: APRESOLINE PO SCH ×3 (08:40→17:09)
[2017-04-01] MEDS: NORVASC PO SCH (08:40)
[2017-04-01] MEDS: CORGARD PO SCH (08:40)
[2017-04-01] MEDS: COREG PO SCH ×2 (08:40→21:52)
--- NOTE | 2017-04-01 09:05 | HISTORY AND PHYSICAL ---
PRIMARY CARE PROVIDER: CORWIN Vidal. PROGRAMMER ANALYST: Dr. Gupta. TIME: 99. CHIEF COMPLAINT: Abdominal pain with nausea and vomiting. HISTORY OF PRESENT ILLNESS: Ms. Amezcua is a 72-year-old, female who has a history of COPD, hypertensive heart disease, chronic kidney disease, diastolic heart failure, prior pulmonary emboli, prior intracranial hemorrhage, coronary artery disease, cardiac cirrhosis complicated with esophageal varices, hyperlipidemia, and diabetes mellitus type 2. She was most recently admitted back in January of 2017 for acute diastolic heart failure and acute on chronic kidney disease. The patient states that starting on or Friday of this past week, approximately 5-6 days ago, she began having generalized abdominal pain which she describes as constant and achy in nature. She also complains of nausea and vomiting. She denies any hematemesis. She did report that on Friday, she had 2 episodes of diarrhea, though has not had any since then. She denies any hematochezia or melena. The patient denied being around anyone who has been sick with similar symptoms. She has not had any recent travel. She does report that she has a headache and has had some dysuria as well. She denies any decrease in the amount of her urine output and also denies any swelling in her legs. She denies any dizziness , lightheadedness, chest pain, or shortness of breath. She also denies cough, fever, body aches, or chills. Upon further evaluation in the ER, the patient was found to be hyperkalemic with a potassium level of 8. She has also had increase in her BUN and creatinine, with a BUN of 75 and a creatinine of 4.6. Her GFR at this time is 11. She also did have some trace leukocytes in her urine. The patient is alert and oriented x3. She is able to answer all questions appropriately. Vital signs upon arrival in the ER were temperature 98.8 degrees, heart rate 72, respirations 22, blood pressure 133/71, with oxygen saturation of 99% room air. At this time, we will admit the patient for further treatment and evaluation of her hyperkalemia, acute on chronic kidney disease, nausea, vomiting, and abdominal pain. REVIEW OF SYSTEMS: A 12 point review of systems was conducted with the patient. All were negative except for pertinent positives mentioned above in the HPI. PAST MEDICAL HISTORY: 1. Recent intracranial hemorrhage in April of 2016. 2. Stage IV chronic kidney disease. 3. Hypertension. 4. Anemia of chronic disease. 5. Diastolic congestive heart failure with last known ejection fraction of 55-60 % in July of 2016. 6. Coronary artery disease, status post CABG. 7. COPD. 8. Hyperlipidemia. 9. Hypertension. 10. History of pulmonary embolism. 11. Gastroesophageal reflux disease. 12. Gastric antral vascular ectasia. 13. 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 14. Erosive gastritis. 15. Duodenitis. 16. Esophageal varices. 17. Portal hypertension. 18. Gastric varices. 19. Cardiac cirrhosis. 20. Diabetes mellitus type 2. 21. Systemic lupus erythematosus. PAST SURGICAL HISTORY: 1. Coronary artery bypass grafting. 2. Cholecystectomy. 3. Multiple EGDs. 4. Back and neck surgery. SOCIAL HISTORY: The patient currently lives alone at this time. She does have a remote history of tobacco use, though there is no known alcohol or illicit drug use. FAMILY HISTORY: Family history is notable for heart disease in her parents. Otherwise, no other medical problems known. ALLERGIES: Patient reports allergies to penicillins, Procrit, iodinated contrast IV dye, and Motrin. HOME MEDICATIONS: Elavil 10 mg p.o. at bedtime, Norvasc 10 mg p.o. daily, aspirin 81 mg p.o. daily, Coreg 6.25 mg p.o. b.i.d., Klonopin 0.5 mg daily, Bentyl 20 mg p.o. q.6 hours p.r.n., Nexium 40 mg p.o. daily, Lasix 80 mg p.o. daily, Amaryl 1 mg p.o. b.i.d., Apresoline 100 mg p.o. t.i.d., [place] 7.5 mg 1 p.o. p.r.n., Isordil 20 mg p.o. t.i.d., Singulair 10 mg p.o. at bedtime, nadolol 40 mg p.o. daily, Zofran 4 mg p.o. b.i.d., prednisone 5 mg p.o. daily, Daliresp 500 mcg p.o. daily, Carafate 1 g p.o. 4 times a day. DIAGNOSTIC DATA/LABORATORY RESULTS: White blood cell count 4.38, hemoglobin 10.7, hematocrit 32.6, MCV is 91.6, platelet count is 145,000. PT 12, INR 1.13, PTT is 32. Sodium 134, potassium 8, chloride 105, bicarb 14, anion gap is 15, BUN 75, creatinine 4.6, GFR 11, glucose 100, calcium 9.8. Total bilirubin is 0.19, AST 19, ALT 10, alkaline phosphatase is 107. CK 38, troponin 0.019. Amylase 104, lipase 54. Urinalysis was obtained via clean catch. It was positive for protein and trace leukocytes. It was otherwise within normal limits. EKG showed sinus rhythm with a first-degree AV block, an abnormal QRS/T angle, consider primary T- wave abnormality, at a rate of 78 with a QTc of 417. Pending diagnostic studies at this time are an abdomen flat and upright with one -view chest. PHYSICAL EXAMINATION: VITAL SIGNS: Temperature 97.8 degrees, heart rate 80, respirations 18, blood pressure 157/81, oxygen saturation is 100% on room air. GENERAL: Ms. Amezcua is a very pleasant, 72-year-old, female who is resting on the ER stretcher. She was in no acute distress. She was awake, alert, and able to answer all questions appropriately. HEENT: Head is atraumatic, normocephalic. Pupils are equal, round, reactive to light, were 3 mm bilaterally and brisk. Subconjunctivae were pink. Oral mucosa is moist. Oropharynx is clear. NECK: Supple. Trachea midline. No carotid bruits noted upon auscultation bilaterally. There is slight JVD noted. CARDIOVASCULAR: Patient has normal S1 and S2. No murmurs, gallops, or rubs appreciated, with a regular rate and rhythm. PULMONARY: Patient has symmetrical chest expansion bilaterally. Lung sounds were clear to auscultation, bilateral full hebert. ABDOMEN: Soft. Nondistended, though the patient does have some generalized tenderness noted upon palpation. Bowel sounds were present in all 4 quadrants, were slightly hypoactive. EXTREMITIES: No cyanosis, clubbing or edema noted. Pulse, motor, and sensory are intact in all extremities. Pedal pulses in bilateral feet were slightly difficult to palpate , though the posterior tibialis was easily obtained with a venous Doppler. INTEGUMENTARY: Patient's skin color is normal for her race, is dry and intact. NEUROLOGICAL: Patient is alert and oriented to person, place, time, and situation. Cranial nerves 2-12 are grossly intact. ASSESSMENT AND PLAN: 1. Hyperkalemia. For this, the patient was treated in thr ER with 5 mg of albuterol nebulizer treatment as well as 30 g of Kayexalate. We also treated her with calcium gluconate 1 g, 5 units of insulin, intravenous D50, and 40 mg of Lasix intravenous as well. She will be placed on CIC with telemetry with close cardiac monitoring and we will repeat a potassium this morning. 2. Acute on chronic kidney disease. The patient was previously a stage IV chronic kidney disease, though at this time, her renal function has decreased. Her GFR is 11. Her creatinine is 4.5 with a BUN of 75. This acute injury could be related to the patient's reported decreased oral intake, and nausea and vomiting. We have treated her hyperkalemia as mentioned above. She was given a 500 mL normal saline bolus in the ER and we will continue with gentle fluids resuscitation. We will repeat a renal profile in the morning and we have placed a consult with Dr. Gupta. We will await his evaluation and further recommendations. 3. Fluid Volume Depletion, we will continue with gentle fluid resuscitation of normal saline as mentioned above in # 2 and will continue to follow. 4. Nausea and vomiting. We will place as needed orders for the patient to have Zofran. 5. Abdominal pain. We have placed an order for a flat and upright abdomen with 1 view chest and we are awaiting those results at this time. We will continue to follow. 6. Anemia of chronic disease, this is likely related to the patient's chronic kidney disease. At this time, her hemoglobin and hematocrit are stable and actually have improved compared to previous laboratory results. We will just continue to monitor this at this time. 7. Hypertension. We will continue the patient's regularly prescribed antihypertensive medications. 8. Diabetes mellitus type 2. Given the patient's decreased renal function, we will hold her oral diabetic medications at this time and place her on a lispro insulin low-dose sliding scale. We will continue to follow. 9. Coronary artery disease, status post coronary artery bypass graft. We will continue her aspirin as previously prescribed. 10. Congestive heart failure. We will continue her regularly prescribed medications as well. The patient's last echocardiogram did show an ejection fraction of 55-60% in July of 2016. 11. Gastroesophageal reflux disease. Given the patient's gastrointestinal history as well as history of a recurrent gastrointestinal bleeding, we will place her on Protonix intravenous every 24 hours. 12. For venous thromboembolism prophylaxis will place SCDs. We will not use anticoagulants given her history of intracranial bleeding and recurrent gastrointestinal bleeding. The patient will placed on CIC with telemetry. She will have vital signs every 4 hours. We will do strict intake and output. We will do fingerstick blood sugars before meals and at bedtime. She will on a diabetic diet and advanced as tolerated. We will do a series of cardiac enzymes and repeat an EKG in the morning. We will also repeat a CBC and a renal profile as well. The patient did have some leukocytes present in her urine. A urine culture was collected and is pending at this time. Further orders and recommendations pending hospital course, diagnostic studies, and physician evaluation. Dictated by CORWIN Leo for Jose Daniel Pelletier MD cc: MD CHUNG Cleaning
--- NOTE | 2017-04-01 09:14 | PROGRESS NOTE ---
DATE: 04/01/2017 SUBJECTIVE: Ms. Amezcua was admitted, I believe came in last night with hyperkalemia, acute on chronic renal failure. She was sleeping, resting comfortably. She said she felt a lot better. Her potassium came down from 8 to 6 this morning. OBJECTIVE: Vital Signs: On exam this morning, temp 97.8 degrees, pulse 87, respirations 16, blood pressure 152/79. HEENT: Pupils are equal and round. CVP less than 6 cm. Lungs: Clear in all lung hebert. Cardiovascular exam: Regular rhythm and rate without murmur or S3. Abdomen: Soft. Skin: Warm and dry. Extremities: I did not appreciate any pedal edema. Weight 140 pounds height 5 feet 9 inches. Urine output was over 4 L. LABS: From this morning, white count 4350, hematocrit 30, platelet count 131,000. Sodium 139, potassium 6.5, chloride 109, bicarbonate at 14. BUN 75, creatinine 4.5, albumin 3.3. Blood sugars 77, 61 68. X-RAYS: Abdominal x-ray with cardiomegaly. No definite acute pathology. EKG shows normal sinus rhythm. There were some peaked T-waves. No widening of the QRS complex. ASSESSMENT AND PLAN: 1. Hyperkalemia, improved, coming down from 8 to 6; it is now 6.5 and I believe it was above 8 when she came in. She was given sodium polystyrene 30 g. She was given an ampule of D 50 and calcium gluconate 1 g; I think she was given that twice, and fluids were running in normal saline at 80 mL an hour. 2. Acute on chronic renal insufficiency. Creatinine 4.5. Of course, we will follow her electrolytes and continue fluid. 3. Other Comorbidities: She has severe pulmonary hypertension, chronic pulmonary thromboembolism, history of coronary artery disease, history of congestive heart failure, hyperlipidemia, diabetes mellitus type 2, esophageal varices, chronic kidney disease as noted above. I believe her history is that she has cardiac cirrhosis, so aware. It appears she has chronic diastolic dysfunction or congestive heart failure with normal ejection fraction. Looking back at her last echocardiogram on 02/04/2017, mild aortic sclerosis without stenosis. Moderate to severe mitral regurgitation. Moderate tricuspid regurgitation. Moderate to severe pulmonary hypertension. Mild concentric left ventricular hypertrophy with estimated ejection fraction 55%. Moderate to left atrial enlargement. Mild right-sided chamber enlargement and elevated central venous pressure. cc: Davie Moya MD
[2017-04-01 09:54] LABS: UR CREAT RANDOM 88.7 mg/dL (11-20)
--- NOTE | 2017-04-01 14:26 | CONSULTATION ---
DATE OF CONSULTATION: 04/01/2017 REASON FOR ADMISSION: Abdominal pain, nausea, hyperkalemia, vfgvo-ra-yngslcc kidney disease. REASON FOR CONSULTATION: Pzsmv-ac-pinsyjb kidney disease, assist with medical management. CONSULTING PHYSICIAN: Dr. Jacky Moya. HISTORY OF PRESENT ILLNESS: This is a 72-year-old female well known to our service for chronic kidney disease stage 4 with a baseline creatinine of 3.2. The patient was recently admitted to the hospital about 6 weeks ago for wrgjr-kr-ntcwhbd diastolic heart failure, acute-on- chronic kidney disease and edema. The patient was seen in our office in followup about 2 weeks after her discharge, and her renal function was back to normal and fluid volumes were well controlled. The patient states that starting last week she began to have some abdominal pain that was constant along with nausea and vomiting. She stated that over the course of the week, she simply became "weaker and weaker." She describes this as a feeling of being unable to really move her arms or legs. Because of these symptoms, she was brought into the emergency room where she was found to be hyperkalemic with a potassium of 8. Her creatinine was up to 4.6. She did have leukocytes noted in the urine and labs, otherwise, were acceptable. The patient was treated for her hyperkalemia in the emergency room and was admitted to the hospital for further workup and treatment with her atevu-am-hwahnng kidney disease, nausea, vomiting, and abdominal pain. When I see her this morning and talk to her, she states that she has had several large loose bowel movements this morning. She said she has had no more vomiting, although she remains somewhat nauseated. In discussion with the patient, we talked about her last visit where it was thought that her ixvjg-pp-fddorld systolic heart failure and fluid volume issues were related to her over indulgence in sodium along with increased fluid intake. The patient described that she had been restricting her fluids accordingly and has stopped eating salt; however, she is using a salt substitute called "No Salt." This is a potassium-based substance. She denied any other chest pain or shortness of breath. She has had no more edema. Her weakness has improved overnight somewhat and, again, as above noted. PAST MEDICAL HISTORY: Chronic kidney disease, stage 4, with a baseline creatinine of 3.2. Diastolic congestive heart failure, coronary artery disease, COPD, hyperlipidemia, hypertension. She had an intracranial hemorrhage a year ago, pulmonary embolism, GERD, AV malformation, gastric antral vascular ectasia, erosive gastritis, duodenitis, portal hypertension, cardiac cirrhosis, diabetes type 2, and systemic lupus erythematosus. PAST SURGICAL HISTORY: She has had a CABG, cholecystectomy, multiple EGDs and back and neck surgery. ALLERGIES: Penicillin, Procrit, iodine, IV dye, Motrin. HOME MEDICATIONS: Listed in the chart as Elavil, Norvasc, aspirin, Coreg, Klonopin, Bentyl, Nexium, Lasix, Amaryl, Apresoline, [place], Isordil, Singulair, Zofran, prednisone , Daliresp, Carafate. FAMILY HISTORY: Heart disease in parents. SOCIAL HISTORY: She is independent. She lives at home. No history of ETOH or illicit drug use. Remote history of tobacco. Nonsmoker at this time. REVIEW OF SYSTEMS: With pertinent positives noted above in the HPI. PHYSICAL EXAMINATION: Vital Signs: Temperature 98.0 degrees, pulse 86, respiratory rate 19, blood pressure 155/92. Intake not measured. Output 2.3 L plus multiple liquid stools. General: This is an elderly female resting in bed. She is awake and alert. No acute distress. She is pleasant, cooperative, and able to assist with exam. HEENT: Normocephalic, atraumatic. Oral mucosa moist. JANKI. Neck: Supple. Trachea midline. No JVD. Cardiovascular : Regular rate and rhythm. No murmur or gallop. Pulmonary: Equal excursion. She is clear bilaterally. Abdomen: Soft with positive bowel sounds. Generalized tenderness. Genitourinary: Not inspected, voiding. Extremities: No clubbing, cyanosis, or edema. Integumentary: Skin is warm and dry without rash or lesion. Neurologic: Grossly nonfocal. LABORATORY DATA: WBC of 4.3, hemoglobin 9.8, sodium 139, potassium 6.5, CO2 of 14, BUN 75, creatinine 4.5, phosphorus 51, albumin 3.3. Calcium 9.1. ASSESSMENT AND PLAN: 1. Dkxir-bt-hanuzdu kidney disease. We will go ahead and order some urine studies. Likely, the patient is somewhat volume depleted with her symptoms that have been going on for a week. She does have normal saline infusing at a gentle rate. We will continue this. Check labs in the morning. 2. Hyperkalemia, likely multifactorial. The patient has chronic kidney disease , stage 4; however, she has not had issues with potassium in the past. It is noted that she has been using a potassium-based salt substitute. We discussed the need for her to use salt substitute such as Mrs. Morgan and to check the labels to make sure that they do not contain potassium. The patient has reported multiple large loose stools since her labs were drawn this morning. We will go ahead and check labs mid day and if potassium is not improved, we will re-dose medically. 3. Nausea and vomiting. The patient has had no more vomiting and is still slightly nauseated. She does have Zofran on board. 4. Anemia of chronic disease. Continue to monitor. We will follow this as an outpatient. 5. Hypertension, controlled. Use patient's home medications. 6. Fluid volume. She is not overloaded at this time. Strict I's and O's. She does have a history of chronic heart failure. Seen, data reviewed, discussed with Camden Murcia on 04/01/17. I agree with the above assessment and plan of care. rg Dictated by CORWIN Perez for Ti Gupta MD cc: Ti Gupta MD [facility]
[2017-04-01 15:08] LABS: CALCIUM 8.8 mg/dL (8.8-10.2)
[2017-04-01] MEDS ORDERED: ELAVIL PO SCH (21:00)
[2017-04-01] MEDS ORDERED: SINGULAIR PO SCH (21:00)
[2017-04-01] MEDS: NORCO-7.5 PO PRN (21:59)
[2017-04-02] MEDS: HUMALOG SUBQ SCH ×4 (00:22→16:55)
[2017-04-02] MEDS: PROTONIX IV SCH (02:27)
[2017-04-02 05:43] LABS: ALBUMIN 3.1 g/dL (3.5-5.0); CALCIUM 8.5 mg/dL (8.8-10.2); MAGNESIUM 1.7 mg/dL (1.5-2.7); POTASSIUM 5.4 mmol/L (3.5-5.1)
[2017-04-02 07:30] LABS: HEMATOCRIT 28.5 % (37.0-47.0); HEMOGLOBIN 9.3 g/dL (12.0-16.0); MCH 30.2 PG (27-31); MCHC 32.6 g/dL (33-37); MCV 92.5 FL (81-99); MPV 10.5 FL (7.4-10.4); RBC 3.08 XMIL (4.2-5.4)
--- NOTE | 2017-04-02 08:50 | PROGRESS NOTE ---
DATE: 04/02/2017 SUBJECTIVE: Ms. Amezcua feels much better. She is wanting to go home. She may be going home this afternoon. PHYSICAL EXAMINATION: Vital Signs: Temperature is 98.8 degrees, pulse 85, respirations 20, blood pressure 133/68. Lungs: Her lungs are clear anterolateral and posterior. Cardiovascular Examination: Regular rhythm and rate without murmur or S3. Abdomen: Soft. Skin: Is warm and dry. Is and Os: Urine output is a little over 4 L. LAB: From this morning, white count 4110, hematocrit 28, platelet count 128,000. Sodium 139, potassium 5.4, chloride 108, BUN 70, and creatinine 4.3. Albumin 3.1. ASSESSMENT AND PLAN: 1. Acute on chronic kidney disease. Some studies have been ordered and it was felt like she was somewhat volume depleted. Symptoms have been going on for about a week. Got a little bit of normal saline. She does feel better. 2. Hyperkalemia, multifactorial, patient with chronic kidney disease stage IV. She has not had any issues with potassium in the past. She had been using potassium based salt substitute so we will stop that substitute. I think she is using Mrs. Morgan. Make sure she does not have any supplemented potassium. 3. Nausea and vomiting, which have resolved. 4. Anemia of chronic disease, stable. 5. Hypertension. Blood pressures appear well controlled. 6. I think she would like to go home today. Looking over her orders and medication, I do not see any further change at this point. 7. Chronic obstructive pulmonary disease. She has home O2. Gas and air exchange appear to be at baseline. cc: Davie Moya MD
--- NOTE | 2017-04-02 09:00 | DISCHARGE SUMMARY ---
ADMISSION DATE: 04/01/2017 DISCHARGE DATE: 04/02/2017 PRIMARY CARE PROVIDER: CORWIN Vidal. HOSPITAL COURSE: She is followed by Dr. Gupta for stage 4 chronic kidney disease. She presented with abdominal pain, nausea, and vomiting. This is a 72-year-old, -Filipino female who had a history of COPD, hypertension, chronic kidney disease stage 4, diastolic heart failure, prior pulmonary emboli, prior intracranial hemorrhage, coronary artery disease, cardiac cirrhosis complicated by esophageal varices, hyperlipidemia, diabetes mellitus type 2. She was most recently admitted back in January 2017 with acute diastolic heart failure and acute-on- chronic kidney disease. The patient states that starting on and Friday in the past week, approximately 5-6 days before admission, she began having generalized abdominal pain described as constant and aching in nature. She also complains of nausea and vomiting. She denied any hematemesis. She did report on Friday. She had 2 episodes of diarrhea though had not had any since. She denies any hematochezia or melena. Patient denied being around anyone sick with similar symptoms. He has not had any recent travel. She does report that she has had a headache and had some dysuria as well. Denies any decrease in amount of urine output. Denies any swelling in her legs. Denied any dizziness or lightheadedness. She came to the emergency room and found to be hyperkalemic with potassium level of 8. She also had an increase in her BUN and creatinine. BUN 75, creatinine 4.6. GFR was calculated at 11. Did have trace leukocytosis in the urine. Patient was alert and oriented and answered questions appropriately. Vital signs upon arrival in the ER: Temperature was 98.8 degrees, heart rate 72, respirations 22, blood pressure 133/71, O2 saturation 99%. They treated her with D50 and insulin, albuterol treatments, and Kayexalate. Potassium came down to 6 this morning. It has come down a little more to 5.4. She feels much better. No abdominal pain. Appetite has been poor, but she says she can eat. Blood sugars have been 111/99/78 so I felt like she could go home on 04/02/2017. We will get physical therapy to walk her around and make sure she is eating okay and plan to discharge her. DISCHARGE DIAGNOSES: 1. She came with hyperkalemia, treated with albuterol 30 g of Kayexalate. Calcium gluconate, amp of D50 and some insulin. 2. Ppbuj-wa-xmupcrg kidney disease. She was given some fluid back. [place] she was a little bit dry. Serum creatinine remained stable. BUN is 70, creatinine was 4.3. 3. History of chronic obstructive pulmonary disease. Continue her O2. Gas exchange seemed to be baseline. 4. Nausea and vomiting, resolved. 5. Abdominal pain, resolved. And, this may have been related to the hyperkalemia. 6. Anemia of chronic disease, which is stable. 7. Hypertension. Blood pressure well controlled. 8. Blood sugars are well controlled. She has diabetes mellitus type 2. 9. Coronary artery disease status post coronary artery bypass grafting. Continue her aspirin. 10. Congestive heart failure which is suspect is congestive heart failure with normal ejection fraction. Appears to be fairly well compensated. 11. Gastroesophageal reflux. 12. History of deep venous thrombosis. I think he had PTE in the past. DISCHARGE MEDICATIONS: I plan on discharging her home with: 1. Tylenol. 2. DuoNebs. 3. Elavil 10 mg p.o. at bedtime. 4. Norvasc 10 mg a day. 5. Aspirin 81 mg a day. 6. Coreg 6.25 mg b.i.d. 7. Klonopin 0.5 mg daily. 8. Lasix 80 mg p.o. daily, 9. Apresoline 100 mg t.i.d. 10. [place] 7.5 q.6 hours p.r.n. 11. Isordil 20 mg p.o. t.i.d. 12. Singulair 10 mg at bedtime. 13. [place] 40 mg daily. 14. Protonix 40 mg IV q. 24 hours. 15. Prednisone 5 mg a day. 16. Roflumilast 500 mcg daily. 17. Carafate 1 g 4 times a day. Note, she also had cardiac cirrhosis and aware of that. cc: Davie Moya MD
[2017-04-02] MEDS: ASPIRIN EC PO SCH (09:48)
[2017-04-02] MEDS: NORVASC PO SCH (09:48)
[2017-04-02] MEDS: KLONOPIN PO SCH (09:48)
[2017-04-02] MEDS: CARAFATE PO SCH ×3 (09:48→16:55)
[2017-04-02] MEDS: ISORDIL PO SCH ×3 (09:48→16:55)
[2017-04-02] MEDS: PREDNISONE PO SCH (09:48)
[2017-04-02] MEDS: COREG PO SCH (09:48)
[2017-04-02] MEDS: DALIRESP PO SCH (09:49)
[2017-04-02] MEDS: LASIX PO SCH (09:49)
[2017-04-02] MEDS: APRESOLINE PO SCH ×3 (09:49→16:55)
[2017-04-02] MEDS: CORGARD PO SCH (09:49)
--- NOTE | 2017-04-02 13:42 | PROGRESS NOTE ---
DATE: 04/02/2017 SUBJECTIVE: Patient is sitting up in bed eating breakfast. She states that she feels much better. Physical Therapy is to come and evaluate her today and she may be able to go home later. OBJECTIVE: Vital Signs: Temperature 99.4 degrees, pulse 89, respiratory rate 20, blood pressure 132/75 intake 2.3 L. Output not measured. General: This is an elderly female , sitting up in bed. She is awake, alert, no acute distress. HEENT: Normocephalic, atraumatic. JANKI, conjunctivae pink. Oral mucosa moist. Neck: Supple. Trachea midline. There is no JVD. Cardiovascular: Reveals a regular rate and rhythm. There is no murmur or gallop appreciated. Pulmonary: She has equal excursion. She is clear bilaterally with no increased work of breathing on room air. Abdomen: Soft, with positive bowel sounds. : Not inspected. She is voiding. Extremities: No clubbing, cyanosis or edema. She is moving all extremities without difficulty today. LABORATORY DATA: Sodium 139, potassium 5.4, CO2 15, BUN 70, creatinine 4.3, albumin 3.1. ASSESSMENT AND PLAN: 1. Acute on chronic kidney disease. The patient's renal function is really unchanged overnight. We have no contraindication for her to remain in the hospital as she can be followed up with labs as an outpatient and clinically she does appear improved. 2. Hyperkalemia. This is improved as well. I had another long discussion with the patient regarding her potassium intake. I gave her written educational material regarding potassium rich foods and we discussed and went over the material. The patient states that she understands and we will try to adhere to as an outpatient. We will recheck her labs in 2 weeks. 3. Nausea, vomiting resolved. 4. Hypertension, controlled. 5. Fluid volume, she is not overloaded. Seen, data reviewed, discussed with Camden Murcia on 04/02/17. I agree with the above assessment and plan of care. rg Dictated by CORWIN Perez for Ti Gupta MD cc: Ti Gupta MD [facility]
[2017-04-02 16:15] VITALS: BP 117/62
[2017-04-02] MEDS: NORCO-7.5 PO PRN (17:17)
== END 2017-04-02 20:26 | disposition home or self-care (01) ==
LOC: ED 21:15 → 3S 04-01 00:59 → SUATTDRO 04-01 00:59
PROVIDERS: ATTEND Emergency Medicine